=== PATIENT | female | born 1980 | race African-American/Black ===

== ENCOUNTER 2018-12-10 00:42 | Inpatient (IN) ==
[2018-12-10] MEDS ORDERED: LACTATED RINGER'S 1,000 ML IV PRN ×3 (01:08→04:01)
[2018-12-10] MEDS ORDERED: OXYTOCIN 30 UNITS/500 ML BAG IV PRN ×3 (01:08→06:33)
[2018-12-10] MEDS ORDERED: LACTATED RINGER'S 1,000 ML IV SCH (01:15)
--- NOTE | 2018-12-10 01:15 | History & Physical Report ---
Date of Service December 10, 2018 Assessment & Plan (1) Normal labor: IUP at 40 weeks in labor . patient is requesting epidural analgesia see admitting orders anticipated vaginal . Present on Admission?: Yes History of Present Illness Primary Care Provider: NO PCP Patient is a 38 yo black female EDC 12/10/18 who presents at 40 weeks with regular contractions. no bloody show or Sprom but did lose mucus plug earlier this evening. GBS (-) complicated only by AMA. Allergies Allergy/AdvReac Type Severity Reaction Status Date / Time No Known Allergies Allergy Unverified 07/31/16 12:45 Home Medications Home Medications Medication Instructions Recorded Confirmed Type Multivit/Min/Iron/Fol Ac/Pren 1 tab PO DAILY #0 tab 07/31/16 History ( Vitamin) fe supplement #0 07/31/16 History Review of Systems All systems reviewed & are unremarkable except as noted in HPI & below Physical Exam Constitutional: WD/WN, vitals as above Respiratory: normal respiratory effort, lungs clear to auscultation Cardiovascular: RRR, no murmur, no edema Gastrointestinal (Abdomen): normal bowel sounds, soft, nontender, no hepatosplenomegaly Genitourinary: OB Exam Abdomen: + regular contractions Manual OB Exam: + cervical dilation 4 cm, + cervical effacement 100% and + station -1 OB Exam Monitor Tracing: + external FHT monitor used, + external uterine monitor used and + normal FHT variability Results & Data Vital Signs (Past 12 Hours) Vital Signs Temp Pulse Resp BP 12/10/18 00:59 76 128/84 12/10/18 00:57 97.9 F 20
[2018-12-10] MEDS ORDERED: BUPIVACAINE 0.25% 30 ML VIAL ONE (01:29)
[2018-12-10] MEDS ORDERED: ePHEDrine sulfate 50 MG/ML AMP ONE (01:29)
[2018-12-10] MEDS ORDERED: fentaNYL 2MCG/ML ROPIV 1.25MG/ML 100 ML BAG EPI ONE (01:30)
[2018-12-10] MEDS ORDERED: fentaNYL citrate 100 MCG/2 ML VIAL ONE (01:30)
[2018-12-10] MEDS ORDERED: fentaNYL 2MCG/ML ROPIV 1.25MG/ML 100 ML BAG EPI PRN (01:48)
[2018-12-10] MEDS ORDERED: ONDANSETRON INJ 2 MG/ML 2 ML VIAL IV PRN (01:48)
[2018-12-10] MEDS ORDERED: PROMETHAZINE HCL 6.25 MG in SODIUM CHLORIDE 0.9% 50 ML IV PRN (01:48)
[2018-12-10] MEDS ORDERED: NALBUPHINE HCL INJ 10 MG/ML AMP IV PRN (01:48)
[2018-12-10] MEDS ORDERED: NALOXONE HCL 0.4 MG/1 ML VIAL/CARP IV PRN (01:48)
[2018-12-10] MEDS ORDERED: ePHEDrine sulfate 50 MG/ML AMP IV PRN (01:48)
[2018-12-10] MEDS ORDERED: DiphenhydrAMINE HCL 50 MG/ML VIAL IV PRN (01:48)
[2018-12-10] MEDS ORDERED: NALOXONE HCL 1 MG in SODIUM CHLORIDE 0.9% 1000ML 1,000 ML IV PRN (01:48)
--- NOTE | 2018-12-10 01:48 | Anesthesiology Consultation ---
Date of Service December 10, 2018 Assessment & Plan Chart Review Chart Review: Patient NOT seen in Pre Admission Testing and Acceptable Risk for Labor Epidural Consults Requested none ASA ASA2 Proposed Anesthesia Anesthesia Type: Labor Epidural Risk / Benefits Reviewed With: PT / POA / Parent / Guardian, Accepts Plan and Informed Consent Obtained NPO Date Last Intake of Fluids: 12/09/18 Time Last Intake of Fluids: 20:00 Date Last Intake of Solids: 12/09/18 Time Last Intake of Solids: 20:00 History Height/Weight Height: 5 ft 4 in Weight: 75.75 kg Allergies Allergy/AdvReac Type Severity Reaction Status Date / Time No Known Allergies Allergy Unverified 07/31/16 12:45 Medications Home Medications Medication Instructions Recorded Confirmed Last Taken Multivit/Min/Iron/Fol Ac/Pren 1 tab PO DAILY #0 tab 07/31/16 Unknown ( Vitamin) fe supplement #0 07/31/16 Unknown Past Medical History Medical History Bunion (spontaneous vaginal delivery) 2015 Social History Smoking Status: Never smoker Hx Alcohol Use: No Hx Substance Use: No Physical Exam Vital Signs Last Vital Signs Temp 36.6 C 12/10/18 00:57 Pulse 98 H 12/10/18 01:47 Resp 20 12/10/18 00:57 BP 107/71 12/10/18 01:47 Pulse Ox 99 12/10/18 01:42 ENMT Mouth: no TMJ abnormality Thyromental Distance: > or= 3.5 Finger Breadths Mallampati Class: II Neck normal visual inspection Respiratory normal respiratory effort Cardiovascular Rate/Rhythm: regular rate and regular rhythm Neurologic moves all extremities Psychiatric Orientation: alert
[2018-12-10 01:51] LABS: Hematocrit (blood only) 32.7 % (37-47); Hemoglobin 10.9 g/dL (12.0-16.0); Mean Corpuscular Volume 77.9 fL (80-100); Mean Platelet Volume 8.9 fL (7.4-10.4); Platelet Count 240 K/uL (130-400); RDW Coefficient of Variation 14.3 % (11.5-14.5); RDW Standard Deviation 40.9 fL (36.4-46.3); White Blood Count 8.36 K/uL (4.8-10.8)
[2018-12-10 02:01] LABS: Mean Corpuscular Hgb Conc 33.3 g/dL (32-36)
--- NOTE | 2018-12-10 02:18 | History & Physical Report ---
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 Beliefs That Will Affect Care: None marital status: Current Living Situation: Spouse Other Information That Helps Us Care for You: No Feels Safe at Home: Yes Safety Concerns: Feels Safe At This Time Smoking Status: Never smoker Hx Alcohol Use: No Hx Substance Use: No Results & Data Vital Signs (Past 12 Hours) Vital Signs Temp Pulse Resp BP Pulse Ox 12/10/18 02:14 108 H 96/56 L 12/10/18 02:12 98 H 99/62 L 100 12/10/18 02:07 95 H 102/67 100 12/10/18 02:04 88 100/62 12/10/18 02:02 111 H 100 12/10/18 01:57 99 H 103/61 99 12/10/18 01:52 105 H 98 12/10/18 01:51 100 H 106/64 12/10/18 01:50 20 12/10/18 01:49 89 97/68 L 12/10/18 01:47 88 107/71 99 12/10/18 01:45 93 H 20 113/69 12/10/18 01:43 103 H 112/57 L 12/10/18 01:42 99 H 99 12/10/18 01:41 92 H 126/62 12/10/18 01:40 20 12/10/18 01:37 86 100 12/10/18 01:32 80 100 12/10/18 00:59 76 128/84 12/10/18 00:57 97.9 F 20
[2018-12-10] MEDS ORDERED: HYDROCORTISONE ACETATE 25 MG SUPP PR PRN (06:33)
[2018-12-10] MEDS ORDERED: SUPERCREAM 0.870% 15 GM JAR EXT PRN (06:33)
[2018-12-10] MEDS ORDERED: BENZOCAINE 20% AER SPR 82.5 GM CAN EXT PRN (06:33)
[2018-12-10] MEDS ORDERED: OXYCODONE/ACETAMINOPHEN 5mg/325mg TAB PO PRN (06:33)
[2018-12-10] MEDS ORDERED: ACETAMINOPHEN 325 MG TAB PO PRN (06:33)
[2018-12-10] MEDS ORDERED: BISACODYL 10 MG SUPP PR PRN (06:33)
[2018-12-10] MEDS: IBUPROFEN 600 MG TAB PO PRN ×4 (08:01→23:19)
[2018-12-10] MEDS: DOCUSATE SODIUM 100 MG CAP PO SCH ×2 (08:02→20:48)
[2018-12-10] MEDS: PRENATAL VITAMIN 1 TAB PO SCH (08:10)
--- NOTE | 2018-12-10 09:26 | Anesthesia Procedure Note ---
Date of Service December 10, 2018 Anesthesia Post Epidural Note Vital Signs Vital Signs: Temp Pulse Resp BP Pulse Ox 98.1 F 91 H 20 121/78 98 12/10/18 05:40 12/10/18 08:12 12/10/18 06:40 12/10/18 08:12 12/10/18 06:23 Notes Mental Status: alert / awake / arousable and participated in evaluation Nausea / Vomiting: adequately controlled Pain: adequately controlled Airway Patency, RR, SpO2: stable & adequate BP & HR: stable & adequate Hydration State: stable & adequate Neuraxial Anesthesia: was administered and sensory block is resolving Anesthetic Complications: no major complications apparent and Pt Satisfied with anesthetic care Epidural: Removed without complications and With tip intact
--- NOTE | 2018-12-10 11:51 | Delivery Summary ---
DATE OF OPERATION: 12/10/2018 The patient is a 38-year-old black female G2, P1-0-0-1, EDC of 12/10/2018, who presented in active labor. She received effective epidural analgesia. Membranes were ruptured for clear fluid. She progressed to full dilation and pushed effectively over intact perineum for delivery of a viable male infant. There was vigorous crying and the infant was moving all 4 limbs upon delivery. was placed on mother's abdomen for further attention and drying. The cord was clamped and cut after approximately 30 seconds. The placenta was then expressed intact with a 3-vessel cord. A first degree perineal laceration was repaired with 3-0 chromic in the usual fashion. Estimated blood loss was 250 mL. Bleeding was controlled with dilute Pitocin. I attest to the content of the Intraoperative Record and any orders documented therein. Any exception s are noted below.
[2018-12-11 07:22] LABS: Hematocrit (blood only) 30.8 % (37-47); Hemoglobin 10.2 g/dL (12.0-16.0); Mean Corpuscular Hgb Conc 33.1 g/dL (32-36); Mean Platelet Volume 9.4 fL (7.4-10.4); Platelet Count 236 K/uL (130-400); RDW Coefficient of Variation 14.5 % (11.5-14.5); RDW Standard Deviation 41.4 fL (36.4-46.3); Red Blood Count 3.95 M/uL (4.2-5.4); White Blood Count 9.01 K/uL (4.8-10.8)
[2018-12-11] MEDS: IBUPROFEN 600 MG TAB PO PRN ×2 (07:23→13:52)
--- NOTE | 2018-12-11 07:37 | Obstetrical Progress Note ---
Date of Service December 11, 2018 Assessment & Plan (1) care following vaginal delivery: satisfactory progress discharge to home follow up in 6 weeks Present on Admission?: No Day #:: 1 Subjective Ambulation: ambulating normally Voiding: no voiding problems Passing Gas:: Yes Diet Tolerance:: regular diet Lochia:: Small Feeding Type:: breast feeding Review of Systems All systems reviewed & are unremarkable except as noted in HPI & below Physical Exam Vital Signs (Past 24 Hours) Last Vital Signs Temp 98.6 F 12/11/18 05:44 Pulse 80 12/11/18 05:44 Resp 18 12/11/18 05:44 BP 130/80 12/11/18 05:44 Pulse Ox 98 12/10/18 06:23 Constitutional WD/WN, vitals as above Gastrointestinal (Abdomen) normal bowel sounds, soft, nontender, no hepatosplenomegaly Genitourinary OB Exam Abdomen: + fundal height Fundus: + firm and + relation to umbilicus (2 below U)
[2018-12-11] MEDS ORDERED: DIPHTHERIA/TETANUS/PERTUSSIS 0.5 ML SYR/VIAL IM ONE (09:00)
[2018-12-11] MEDS: DOCUSATE SODIUM 100 MG CAP PO SCH (09:20)
[2018-12-11] MEDS: PRENATAL VITAMIN 1 TAB PO SCH (09:21)
[2018-12-11] MEDS ORDERED: BISACODYL 5 MG TABEC PO SCH (20:00)
--- OUTSIDE RECORDS SUMMARY | 2018-12-11 22:41 | External Medical Summary | Continuity of Care Document ---
:1980 Author Name Reji Amrbocio, Provider Address Unavailable Unavailable , Care Team Providers Name Role Phone Jackie Ambrocio, Alycia Lomas Unavailable [email or web address] PCP, NO Unavailable Unavailable Unavailable Unavailable Unavailable Problems Elderly multigravida in third trimester (659.63) (O09.523) Multigravida of advanced maternal age in third trimester (65 9.63) (O09.523) Allergies and Adverse Reactions No Known Drug Allergies (Allergy) Medications Pre-Roland TABS Refills: 0 Procedures Non-stress test Date: 04-Dec-2018 Immunizations Immunizations not documented Family History Father Family history of diabetes mellitus (V18.0) (Z83.3) Status: Active Plan of Treatment Planned Observations Planned Goals not documented Results Non-stress test (Pending) Laboratory: In House 13-Nov-2018 11:42 Non-Stress Test Reactive Urine Culture Patient 13-Nov-2018 14:15 Urine Culture Patient ORDERED PROCEDURE : Urine Culture Patient; Speciment : Urine,Clean Catch Source of Specimen: Urine Clean Catch Urine Culture Patient : Lactobacillus species Alton Count\S\Alton Count 20,000 S\S\Sens No Sensitivities to Follow Group B Strep/CASSIDY 13-Nov-2018 14:15 GRP B BETA STREP CULTURE - CASSIDY ORDERED PROCEDURE : GRP B Beta Strep Culture -CASSIDY; Speciment : Vaginal/Rectal Source of Specimen: Vaginal/Rectal Group B Strep Culture : No Group B Strep isolated Chlamydia And GC RNA Laboratory: [facility] Comments: [facility] [employer] NUMBER: [id number] 13-Nov-2018 14:15 Chlamydia Trach RNA NOT Range: NOT DETE CTED DETECTED Comments: This test was performed using the APTIMA COMBO2(R) Assay(GEN-PROBE(R).The analytical performance characteristics of this assay,when used to test SurePath(R) specimens have beendetermined by [employer] GC (Neis gonorrhoeae) RNA NOT Range: NO T DETECTED DETECTED Comments: This test was performed using the APTIMA COMBO2(R) Assay(GEN-PROBE(R).The analytical performance characteristics of this assay,when used to test SurePath(R) specimens have beendetermined by [employer].THIS TEST WAS PERFORMED AT:[facility] [address] [place] [address] [id number] SHORE MD Non-stress test (Pending) Laboratory: [facility] 20-Nov-2018 16:05 Non-Stress Test Reactive RPR - Rapid Plasma [facility] Laboratory: [facility] [address] [facility] [address] tel: 20-Nov-2018 14:48 RAPID PLASMA REAGIN Range: Nonreactive Nonreactive Non-stress test (Pending) Laboratory: [facility] 27-Nov-2018 15:01 Non-Stress Test Reactive Non-stress test (Pending) Laboratory: [facility] 04-Dec-2018 14:51 Non-Stress Test Reactive Vital Signs 04-Dec-2018 14:00 Systolic 112 mm[Hg] Diastolic 68 mm[Hg] Weight 167.2 lb Height 64 in BMI Calculated 28.7 kg/m2 BSA Calculated 1.81 m2 27-Nov-2018 13:59 Systolic 112 mm[Hg] Diastolic 80 mm[Hg] Weight 167.6 lb Height 64 in BMI Calculated 28.77 kg/m2 BSA Calculated 1.81 m2 20-Nov-2018 14:13 Systolic 100 mm[Hg] Diastolic 72 mm[Hg] Weight 163.5 lb Height 64 in BMI Calculated 28.07 kg/m2 BSA Calculated 1.8 m2 13-Nov-2018 10:44 Systolic 106 mm[Hg] Diastolic 68 mm[Hg] Weight 163.6 lb Height 64 in BMI Calculated 28.08 kg/m2 BSA Calculated 1.8 m2 Encounters Appointment; Hector Cartagena M.D. 04-Dec-2018 14:40 Encounter Diagnosis: Problem not documented Appointment; OB SC1, Nonstress Test 04-Dec-2018 14:00 Encounter Diagnosis: Problem not documented Appointment; OB SC1, Nonstress Test 27-Nov-2018 14:15 Encounter Diagnosis: Problem not documented Appointment; Sofya Chang M.D. 27-Nov-2018 13:50 Encounter Diagnosis: Problem not documented Appointment; June Kelly M.D. 20-Nov-2018 14:30 Encounter Diagnosis: Problem not documented Appointment; OB SC1, Nonstress Test 20-Nov-2018 14:00 Encounter Diagnosis: Problem not documented Appointment; Hector Cartagena M.D. 13-Nov-2018 11:10 Encounter Diagnosis: Problem not documented Appointment; OB SC1, Nonstress Test 13-Nov-2018 10:30 Encounter Diagnosis: Problem not documented Appointment; Naa Martinez DO 31-Oct-2018 10:40 Encounter Diagnosis: Problem not documented Appointment; OB SC1, Procedure Rm 31-Oct-2018 10:40 Encounter Diagnosis: Problem not documented Appointment; OB SC1, Nursing Station 23-Oct-2018 14:00 Encounter Diagnosis: Problem not documented
== END 2018-12-11 19:15 | disposition home or self-care (01) | DRG 807 ==
LOC: OPB 00:42 → 4S1 00:44 → 4S2 14:15